=== PATIENT | male | born 1970 | race Caucasian/White ===

== ENCOUNTER 2020-09-27 00:12 | Emergency (ER) | payer MEDICAID, OTHER ==
[~2020-09-27] VITALS: Ht 167.6 cm; Wt 76.0 kg
[2020-09-27] MEDS ORDERED: SODIUM CHLORIDE 0.9% 1,000 ML IV ONE (00:30)
[2020-09-27 00:45] LABS: EOSINOPHILS % 3.6 % (0.0-5.0); HEMATOCRIT. 39.4 % (42.0-52.0); HEMOGLOBIN. 13.5 g/dL (14.0-18.0); LYMPHOCYTES % 43.9 % (20.0-50.0); MEAN CORPUSCULAR HEMOGLOBIN 30.4 pg (28.0-32.0); MEAN CORPUSCULAR VOLUME 88.5 fL (80.0-94.0); MEAN PLATELET VOLUME 10.2 fl (7.4-10.4); MONOCYTES % 7.5 % (2.0-8.0); PLATELET 186 x1000/uL (130-400); RED BLOOD CELL COUNT 4.45 mill/uL (4.7-6.1); RED CELL DISTRIBUTION WIDTH 12.6 % (11.6-14.6)
[2020-09-27] MEDS ORDERED: METHYLPREDNISOLONE SOD SUCC 125 MG/2 ML VIAL IV ONE (00:45)
[2020-09-27] MEDS ORDERED: EPINEPHRINE 1:1000 1 MG/ML AMP INJ ONE (00:45)
[2020-09-27 00:52] LABS: CHLORIDE 107 mEq/L (98-107)
[2020-09-27] MEDS ORDERED: KCL 20MEQ/100ML PREMIX 100 ML IV ONE (01:45)
[2020-09-27] MEDS ORDERED: POTASSIUM CHLORIDE 10MEQ TABLET SR PO SCH (01:45)
[2020-09-27] MEDS ORDERED: EPIN0.3P3 IM (03:12)
[2020-09-27] MEDS ORDERED: P20 MT (03:29)
[2020-09-27 06:30] VITALS: BP 119/79
== END 2020-09-27 07:37 | disposition home or self-care (01) ==
LOC: ER 00:12
DX: L50.9 Urticaria, unspecified (principal); T78.2XXA Anaphylactic shock, unspecified, initial encounter; E87.6 Hypokalemia; I95.9 Hypotension, unspecified; E11.9 Type 2 diabetes mellitus without complications; Z98.890 Other specified postprocedural states
CPT/HCPCS: 36415; 80053; 83605; 83880; 84484; 85025; 93005; 96365; 96375; 99285; J2930; J3480; J3490; J7030; Z7610; 96366

== ENCOUNTER 2021-05-15 00:29 | Emergency (ER) | payer MEDICAID ==
[~2021-05-15] VITALS: Ht 177.8 cm; Wt 80.0 kg
[~2021-05-15 00:29] MED LIST: EPIN0.3P3 IM; P20 MT
[2021-05-15] MEDS ORDERED: SODIUM CHLORIDE 0.9% 1000ML BAG (SEPSIS BOLUS) IV ONE (00:45)
[2021-05-15 01:13] LABS: BASOPHILS % 0.6 % (0.0-2.0); EOSINOPHILS % 6.8 % (0.0-5.0); HEMATOCRIT. 46.6 % (42.0-52.0); HEMOGLOBIN. 15.7 g/dL (14.0-18.0); MEAN CORPUSCULAR HEMOGLOBIN 30.7 pg (28.0-32.0); MEAN CORPUSCULAR VOLUME 91.5 fL (80.0-94.0); MEAN PLATELET VOLUME 10.8 fl (7.4-10.4); MONOCYTES % 5.1 % (2.0-8.0); NEUTROPHILS % 32.5 % (40.0-76.0); PLATELET 232 x1000/uL (130-400); RED BLOOD CELL COUNT 5.09 mill/uL (4.7-6.1); RED CELL DISTRIBUTION WIDTH 12.8 % (11.6-14.6)
[2021-05-15 01:20] LABS: CHLORIDE 110 mEq/L (98-107)
[2021-05-15 01:26] LABS: ETHANOL BLOOD 189 mg/dL
[2021-05-15 01:29] LABS: CREATINE KINASE 158 IU/L (39-308)
[2021-05-15 05:15] VITALS: BP 96/63
== END 2021-05-15 05:28 | disposition home or self-care (01) ==
LOC: ER 00:29
DX: F10.129 Alcohol abuse with intoxication, unspecified (principal); I95.9 Hypotension, unspecified; Y90.6 Blood alcohol level of 120-199 mg/100 ml; R21 Rash and other nonspecific skin eruption
CPT/HCPCS: 36415; 80053; 80307; 80320; 80329; 82140; 82550; 83690; 84443; 85025; 96360; 99285; J7030; G0480

== ENCOUNTER 2023-08-24 09:32 | Emergency (ER) | payer MEDICAID, OTHER ==
[~2023-08-24] VITALS: Ht 175.3 cm; Wt 89.8 kg
[2023-08-24 09:33] VITALS: PULSE 71
[2023-08-24 09:37] VITALS: BP 116/76; RESP 16; TEMP 98.2; O2SAT 99
== END 2023-08-24 09:48 | disposition home or self-care (01) ==
LOC: ER 09:32
DX: R19.7 Diarrhea, unspecified (principal); I10 Essential (primary) hypertension; Z98.890 Other specified postprocedural states
CPT/HCPCS: 99281